=== PATIENT | female | born 1935 | race Caucasian/White ===

== ENCOUNTER 2021-08-21 13:41 | Outpatient (REF) | payer MEDICARE, SELFPAY ==
--- NOTE | 2021-08-23 14:10 | MHC.AU.ANH ---
Adult Audiological Evaluation Date of Visit: 08/21/21 Reason for Appointment: History of hearing loss and tinnitus. Patient finds the tinnitus bothersome, especially at bedtime. She has a pair of hearing aids she received last year from [employer]. She reports that she does not wear them consistently throughout the day. Ear History: Ear Deformity: None Reported Recent Ear Drainage: None Reported Recent Ear Pain: None Reported Family History of Hearing Loss?: Yes: Father, Son Recent Ear Infections: None Reported Ear Infections in Childhood: None Reported History of Ear Wax Buildup: None Reported Previous Ear Surgery: None Reported Bothersome Tinnitus/Ringing/Noises in Ears: Both Ears Ear used on the phone: Right Ear Blocked/Full Sensation in Ear(s): None Reported History of occupational noise exposure?: No History: No Medical History: Hypothyroidism, Osteoarthritis, Hypertension, Dementia, Hemicrania Continua (right-sided) Hearing Instrument History- Right Ear: [employer]: [employer] Serial Number: [id number] Battery Size: Rechargeable Dispensed By: [facility] Date of Fittin04/08/2020 Hearing Instrument History- Left Ear: [employer]: [employer] Serial Number: [id number] Battery Size: Rechargeable Dispensed By: [facility] Date of Fittin04/08/2020 Otoscopy: Right Ear: Unremarkable Left Ear: Unremarkable Tympanometry: Tympanometry performed due to: To assess integrity of the middle ear system Right Ear: Normal Middle Ear System (Type A) Left Ear: Normal Middle Ear System (Type A) Hearing Evaluation: Transducer(s) Used: Insert Earphones Method: Conventional Audiometry Stimuli Used: Pure Tones Right Ear: Description of Hearing: Moderate to profound sensorineural hearing loss Left Ear: Description of Hearing: Severe rising to moderately-severe and sloping to profound sensorineural hearing loss Speech Recognition Threshold (SRT): Method Used: Recorded Lists Stimuli Used: Spondee Words Right Ear: 55 dBHL Left Ear: 60 dBHL Word Discrimination: Method: Recorded Lists Word Lists Used: W-22 Right Ear: 80% at 70 dBHL Left Ear: 72% at 80 dBHL Most Comfortable Level (MCL): Right Ear: 70 dBHL Left Ear: 80 dBHL Soundfield: Comparison: Compared to the most recent evaluation: Hearing is stable. Recommendations: -Audiological re-evaluation in one year. -Increased use of hearing aids is highly recommended. Hearing aids should ideally be worn for the majority of waking hours. -Discussed tinnitus management strategies, including increased use of the hearing aids or use of masking sounds (such as white noise, fans, tv, radio, noise generators, etc). Patient does not notice the tinnitus when wearing her hearing aids. Her reports that they have tried a noise generator in the past, but it was not loud enough to mask the tinnitus and she did not want to disturb her by increasing the volume. Patient plans to try wearing the hearing aids to bed for one night to see if it helps. This is not an ideal long-term solution, as her hearing aids are rechargeable. The hearing aids take 3 hours to charge; therefore, she would not be able to use them for the first 3 hours of the morning. If she finds that wearing the hearing aids to be bed helps, an alternative longer-term solution may be wearing wireless headphones to bed, paired to a phone with a tinnitus hank. There are numerous free tinnitus apps available if you go to the Hank Store/Play Store on your phone and search tinnitus. These apps often have a variety of masking sounds, such as white noise, nature sounds, songs, etc. that may help reduce perception of the tinnitus. By wearing wireless headphones, the patient can set the volume however loud she wants it without worrying about disturbing her 's sleep. Diagnosis: Primary Diagnosis: H90.3 Bilateral Sensorineural Hearing Loss Secondary Diagnosis: H93.13 Tinnitus, Bilateral Signature: Provider: Bill Pizarro, [facility]
== END 2021-08-21 13:42 | disposition home or self-care (01) ==
LOC: HO.SH 13:41
PROVIDERS: Visit Provider Internal Medicine
DX: Z01.118 Encounter for examination of ears and hearing with other abnormal findings (principal); H90.3 Sensorineural hearing loss, bilateral
CPT/HCPCS: 92557; 92567